=== PATIENT | female | born 1965 | race Caucasian/White ===

== ENCOUNTER → 2021-12-05 | Outpatient (CLI) | payer OTHER | LOC: M RAD 07:50 | PROVIDERS: ATTEND Internal Medicine | DX: D32.0 Benign neoplasm of cerebral meninges (principal) ==

== ENCOUNTER → 2023-03-26 | Outpatient (REF) | payer OTHER ==
[2023-03-26 16:24] LABS: CREATININE, URINE 168.6 MG/DL; MAU/CREAT RATIO 2.9 MCG/MG (0.0-30.0)
== END ==
LOC: M LAB REF 15:30
PROVIDERS: ATTEND Nurse Practitioner Family
DX: E11.65 Type 2 diabetes mellitus with hyperglycemia (principal)

== ENCOUNTER → 2023-10-08 | Outpatient (CLI) | payer OTHER ==
[~2023-10-08] MED LIST: PROHANCE 279.3MG/ML 15ML VIAL As Ordered ONE; PROHANCE 279.3MG/ML 5ML VIAL As Ordered ONE
== END ==
LOC: M RAD 12:21
PROVIDERS: ATTEND Nurse Practitioner Family
DX: D32.9 Benign neoplasm of meninges, unspecified (principal)
CPT/HCPCS: 70553; A9576